=== PATIENT | female | born 1965 | race Caucasian/White ===

== ENCOUNTER 2016-10-03 10:31 | Emergency (ER) | payer BC ==
[2015-10-30 12:25] VITALS: BMI 35.3
[~2016-10-03 10:31] MED LIST: SYNTHROID50 MCG PO; ZANTAC150 MG PO
[2016-10-03 11:14] LABS: BASOPHILS 0.2 % (0-2); EOSINOPHILS 5.6 % (0-7); HEMATOCRIT 47.4 % (36.0-48.0); HEMOGLOBIN 15.4 g/dL (12-16); IMMATURE GRANULOCYTES 0.2 % (0-5); LYMPHOCYTES 29.2 % (15-50); MCH 31.1 pg (26.0-34.0); MCHC 32.5 g/dL (31.0-37.0); MCV 95.8 fL (80.0-100.0); MEAN PLATELET VOLUME 10.3 fL (7.4-10.4); MONOCYTES 7.4 % (2-11); NEUTROPHILS 57.4 % (40-80); PLATELET COUNT 549 10x3/uL (130-400); RBC 4.95 10x6/uL (4.00-5.40); RDW 13.8 % (11.5-14.5); WBC 9.7 10x3/uL (4.8-10.8)
[2016-10-03 11:37] LABS: ALBUMIN 3.9 g/dL (3.4-5.0); ANION GAP 15.1 mmol/L (8-16); BILIRUBIN - TOTAL 0.7 mg/dL (0.2-1.3); CALCIUM 9.4 mg/dL (8.5-10.1); CARBON DIOXIDE 27.2 mmol/L (21.0-32.0); POTASSIUM - SERUM 4.3 mmol/L (3.5-5.1); PROTEIN - SERUM 7.3 g/dL (6.4-8.2)
[2016-10-03 13:28] LABS: APPEARANCE CLEAR (CLEAR); BILIRUBIN NEGATIVE (NEGATIVE); COLOR STRAW (YELLOW); GLUCOSE NEGATIVE (NEGATIVE); KETONE SMALL mg/dL (NEGATIVE); LEUKOCYTE ESTERASE NEGATIVE (NEGATIVE); NITRITE NEGATIVE (NEGATIVE); PROTEIN NEGATIVE (NEGATIVE); UROBILINOGEN NORMAL (NORMAL)
== END 2016-10-03 15:14 | disposition home or self-care (01) ==
LOC: D.ER 10:31
PROVIDERS: Emergency Medicine
DX: G45.4 Transient global amnesia (principal); Z87.891 Personal history of nicotine dependence

== ENCOUNTER → 2017-01-22 16:38 | Outpatient (CLI) | payer BC ==
[2015-10-30 12:25] VITALS: BMI 35.3
== END | disposition home or self-care (01) ==
LOC: D.MAMMO 16:15
DX: Z12.31 Encounter for screening mammogram for malignant neoplasm of breast (principal)

== ENCOUNTER → 2017-10-24 10:44 | Outpatient (CLI) | payer BC ==
[2015-10-30 12:25] VITALS: BMI 35.3
== END | disposition home or self-care (01) ==
LOC: D.US 10:44
DX: M79.605 Pain in left leg (principal)

== ENCOUNTER → 2018-01-28 21:57 | Outpatient (CLI) | payer BC ==
[2015-10-30 12:25] VITALS: BMI 35.3
== END | disposition home or self-care (01) ==
LOC: D.MAMMO 16:00
DX: Z12.31 Encounter for screening mammogram for malignant neoplasm of breast (principal)

== ENCOUNTER → 2019-03-31 08:00 | Outpatient (CLI) | payer OTHER ==
[2015-10-30 12:25] VITALS: BMI 35.3
== END | disposition home or self-care (01) ==
LOC: D.MAMMO 02-03 16:00
PROVIDERS: ATTEND Emergency Medicine
DX: Z12.31 Encounter for screening mammogram for malignant neoplasm of breast (principal)

== ENCOUNTER 2020-09-12 14:30 | Outpatient (CLI) | payer OTHER ==
[2015-10-30 12:25] VITALS: BMI 35.3
== END 2020-09-12 23:59 | disposition home or self-care (01) ==
LOC: D.MAMMO 14:30
PROVIDERS: ATTEND Emergency Medicine
DX: Z12.31 Encounter for screening mammogram for malignant neoplasm of breast (principal)